=== PATIENT | female | born 1975 | race Caucasian/White ===

== ENCOUNTER 2017-03-17 12:32 | Emergency (ER) | payer BC ==
--- NOTE | 2017-03-17 13:08 | UC ---
Abdominal Pain Female HPI - HPI Summary HPI Summary: 41 year old female with abdominal pain . Lower abdominal pain & lower back pressure x2 days. Denies n/v/d or urinary sx; decreased BMs. Has had a 10-12# weight loss in last month & a half. Pain severe at this time and worsened since yesterday and late to work yesterday due to pain and worsened today . also hs had history of constipation but no GI. [ End ] - History of Current Complaint Chief Complaint: UCAbdominalPain Stated Complaint: ABDOMINAL PAIN Time Seen by Provider: 03/17/17 12:59 Hx Obtained From: Patient Hx Last Menstrual Period: 03/01/17 Onset/Duration: Gradual Onset Timing: Constant Severity Initially: Mild Severity Currently: Moderate Radiates: Yes Radiates to: Back Character: Cramping, Sharp Aggravating Factor(s): Movement, Deep Breaths Alleviating Factor(s): Nothing Allergies/Adverse Reactions: Allergies Allergy/AdvReac Type Severity Reaction Status Date / Time Penicillins Allergy Anaphylatic Verified 03/17/17 12:41 Shock Home Medications: Home Medications Ibuprofen TAB* [Advil TAB*] 800 mg PO Q8H PRN 03/17/17 [History Confirmed ] PMH/Surg Hx/FS Hx/Imm Hx Previously Healthy: Yes - Surgical History Surgical History: Yes Surgery Procedure, Year, and Place: x 2. tubal ligation. lap cynthia. hemorrhoid sx - Family History Known Family History: Positive: None - Social History Occupation: Employed Full-time Lives: With Family Alcohol Use: None Substance Use Type: None Smoking Status (MU): Never Smoked Tobacco Type: Cigarettes Amount Used/How Often: 1/2 pack daily Cessation Counseling: Patient Advised to Stop Review of Systems Gastrointestinal: Abdominal Pain, Nausea All Other Systems Reviewed And Are Negative: Yes Physical Exam Triage Information Reviewed: Yes Appearance: Well-Appearing, Pain Distress - moderate Vital Signs: Initial Vital Signs Temp 98.9 F 03/17/17 12:41 Pulse 79 03/17/17 12:41 Resp 16 03/17/17 12:41 BP 101/58 03/17/17 12:41 Pulse Ox 100 03/17/17 12:41 Vital Signs Reviewed: Yes ENT Exam: Normal Respiratory Exam: Normal Cardiovascular Exam: Normal Abdomen Description: Positive: Distended, Peritoneal Signs, Other: - diffuse tenderness to palpatio in all quadrants Bowel Sounds: Positive: Present Musculoskeletal Exam: Normal Neurological Exam: Normal Psychological Exam: Normal Skin Exam: Normal Abd Pain Female Course/Dx - Course Course Of Treatment: go to [facility] for labs and imaging for acute abdomen - Differential Dx/Diagnosis Provider Diagnoses: acute abdomen - Physician Notification/Consults Discussed Care of Patient With: Yuni Ashlie Time Discussed With Above Provider: 13:14 Discharge - Discharge Plan Condition: Fair Disposition: OTHER Discharge Disposition Comment: acute abdomen Patient Education Materials: Abdominal Pain (ED) Referrals: ESTRELLITA Moreno [Primary Care Provider] - Additional Instructions: PLEASE GO DIRECTLY TO THE [facility] AT THIS TIME FOR FURTHER WORK UP WE CAN NOT PROPERLY WORK YOU UP IN THIS SETTING
[2017-03-17 13:20] VITALS: BP 105/70
== END 2017-03-17 13:20 ==
LOC: UCCORT 12:32
DX: R10.30 Lower abdominal pain, unspecified (principal); M54.5 Low back pain; Z88.0 Allergy status to penicillin; F17.210 Nicotine dependence, cigarettes, uncomplicated
CPT/HCPCS: 99202; G0463

== ENCOUNTER 2019-07-16 13:26 | Emergency (ER) | payer SELFPAY ==
[2019-07-16 14:10] VITALS: BP 101/62
--- NOTE | 2019-07-16 14:37 | UC ---
Back Pain HPI - HPI Summary HPI Summary: Pt presents with c/o gradual onset of low back pain. Pt states that on Sunday , 07/12/19, she was lifting heavy object at work. Pt states she woke Sunday with "extremely bad back pain" that has gotten worse over the last 3 days. Pt states pain now radiates across low back and around trunk. Pt denies loss of bowel or bladder control. - History of Current Complaint Chief Complaint: UCBackPain Stated Complaint: WC-LOWER BACK INJURY Time Seen by Provider: 07/16/19 14:28 Hx Obtained From: Patient Hx Last Menstrual Period: 03/01/17 ?: No Onset/Duration: Sudden Onset, Lasting Days, Still Present, Worse Since - osnet Timing: Constant Severity Initially: Moderate Severity Currently: Severe Pain Intensity: 9 Character: Dull, Aching, Throbbing, Spasmodic, Stiffness Aggravating Factor(s): Movement, Lifting, Bending, Walking Alleviating Factor(s): Rest, Position Associated Signs And Symptoms: Positive: Negative - Risk Factors AAA Risk Factors: Negative TAD Risk Factors: Negative Cauda Equina Risk Factors: Negative Epidural Abscess Risk Factors: Negative - Allergies/Home Medications Allergies/Adverse Reactions: Allergies Allergy/AdvReac Type Severity Reaction Status Date / Time Penicillins Allergy Anaphylatic Verified 07/16/19 14:02 Shock Home Medications: Home Medications Acetaminophen [Tylenol Extra Strength] 4 tab PO ONCE 07/16/19 [History Confirmed 07/16/19] Cyclobenzaprine TAB* [Flexeril 10 MG TAB*] 10 mg PO TID PRN 07/16/19 [History Confirmed 07/16/19] PMH/Surg Hx/FS Hx/Imm Hx Previously Healthy: Yes - Surgical History Surgical History: Yes Surgery Procedure, Year, and Place: x 2. tubal ligation. lap cholecystectomy. hemorrhoid sx. hysterectomy 08/2018 - Family History Known Family History: Positive: Cardiac Disease - Social History Occupation: Employed Full-time Lives: With Family Alcohol Use: None Substance Use Type: None Smoking Status (MU): Heavy Every Day Tobacco Smoker Type: Cigarettes Amount Used/How Often: 1/2 pack daily Have You Smoked in the Last Year: Yes Review of Systems All Other Systems Reviewed And Are Negative: Yes Constitutional: Positive: Negative Skin: Positive: Negative Eyes: Positive: Negative ENT: Positive: Negative Respiratory: Positive: Negative Cardiovascular: Positive: Negative Gastrointestinal: Positive: Negative Genitourinary: Positive: Negative Motor: Positive: Decreased ROM Neurovascular: Positive: Negative Musculoskeletal: Positive: Decreased ROM, Myalgia Neurological: Positive: Negative Psychological: Positive: Negative Is Patient Immunocompromised?: No Physical Exam Triage Information Reviewed: Yes Appearance: Pain Distress Vital Signs: Initial Vital Signs Temp 98.5 F 07/16/19 14:03 Pulse 76 07/16/19 14:03 Resp 14 07/16/19 14:03 BP 101/62 07/16/19 14:03 Pulse Ox 99 07/16/19 14:03 Vital Signs Reviewed: Yes Eye Exam: Normal ENT: Positive: Hearing grossly normal Dental Exam: Normal Neck exam: Normal Respiratory Exam: Normal Respiratory: Positive: No respiratory distress Musculoskeletal: Positive: Strength Limited @, ROM Limited @ Neurological Exam: Normal Psychological Exam: Normal Skin Exam: Normal Diagnostics - Radiology No standard instances Radiology Interpretation Completed By: Radiologist - unremarkable xray or lumbar spine Back Pain Course/Dx - Differential Dx/Diagnosis Differential Diagnosis/HQI/PQRI: Herniated Disc, Strain, Sprain Provider Diagnosis: Low back strain Discharge ED - Sign-Out/Discharge Documenting (check all that apply): Patient Departure All imaging exams completed and their final reports reviewed: Yes - Discharge Plan Condition: Stable Disposition: HOME Prescriptions: predniSONE 10 mg TAB [Deltasone 10 MG TAB*] 30 mg PO DAILY #12 tab Patient Education Materials: Low Back Strain (ED), Lower Back Exercises (ED) Forms: *Work Release Referrals: ESTRELLITA Moreno [Primary Care Provider] - 7 Days - Billing Disposition and Condition Condition: STABLE Disposition: Home
== END 2019-07-16 15:23 | disposition home or self-care (01) ==
LOC: UCCORT 13:26
DX: S39.012A Strain of muscle, fascia and tendon of lower back, initial encounter (principal); F17.210 Nicotine dependence, cigarettes, uncomplicated; Z88.0 Allergy status to penicillin; X50.0XXA Overexertion from strenuous movement or load, initial encounter; Y92.9 Unspecified place or not applicable; Y99.0 Civilian activity done for income or pay
CPT/HCPCS: 72110; 99212; G0463